=== PATIENT | male | born 1975 | race Caucasian/White ===

== ENCOUNTER 2025-04-26 19:54 | Emergency (ER) | payer MEDICAID, SELFPAY ==
[2025-04-26 19:58] VITALS: BP 157/91; PULSE 84; RESP 18; TEMP 36.6; O2SAT 95
--- NOTE | 2025-04-26 20:37 | ED.GENADUL_ITS ---
Discharge Plan Disposition Patient Disposition: Home Condition: Stable Discharge Details Clinical Impression: Epidermal cyst of neck Primary Care Provider: None,None ED Provider: Valentina Brandon Discharge Instructions Instructions: Epidermal Cyst (DC) Additional Instructions: You were seen in the emergency department today for evaluation of a cyst on the back of your neck, most likely an epidermal inclusion cyst. In our department a full physical examination performed, had an ultrasound that was reassuring against infection of the surrounding skin and tissues. The cyst was drained and packed with iodoform gauze, this should stay in place for the next 24 to 48 hours. This will help keep the cyst open and draining well it starts to heal from the inside out. It is normal for blood and fluid to come out of this and this is in fact preferable. You do not need to take antibiotics for this. I have placed a referral for you to establish with a primary care provider. It is definitely possible that this cyst could come back, if it does, you may need to be referred to general surgery to have it definitively removed. You can use warm compresses to help the area drain and improve swelling and pain. Please follow-up with your primary care provider in the next few days to discuss this visit and any symptoms that change, worsen, or persist. Thank you for allowing us to be part of your care. Stand Alone Forms: Portal Information, Work Release HPI General Mode of arrival: ambulatory . Date/Time Provider Initiated Documentation: 04/26/25 19:55 . Limitations to Documentation: no limitations . Information obtained by: patient, family and old records reviewed . HPI Narrative: This is a 50-year-old male patient without significant past medical history presenting for evaluation of a swelling on the back of his neck. The patient reports that for the last several months he has had a cyst in that region, has a history of cysts, states that this 1 has been more irritated and bothersome recently. He did attempt to pop it at home, but only a small amount of clear fluid and blood came out. The patient has not had a fever, has not noted any other changes to his health. He did not injure that area, does not use clippers over the area. Related Data Allergies Allergy/AdvReac Type Severity Reaction Status Date / Time naproxen Allergy Intermediate GI Bleeding Unverified 04/26/25 20:02 gabapentin AdvReac Severe Psychosis Unverified 04/26/25 20:02 General Stated Complaint: Cellulitis MIREYA: 3 Exam Narrative Exam Narrative: Gen: Awake and alert, in no apparent distress HEENT: Non-icteric sclera Neck: Supple, 1-1/2 cm cyst located to the left sided posterior aspect of the neck, firm, mobile, with no overlying warmth, redness, or induration. Lungs: No apparent respiratory distress, normal respiratory effort. CV: Appears well perfused, strong distal pulses, regular rate and rhythm Abdomen: Non-distended MSK: Moves 4 extremities without apparent limitation in ROM Skin: Visualized skin without rashes, cyanosis. Neuro: Normal Gait, no obvious focal deficits or facial asymmetry. Speaks in full, clear sentences. Psych: Appropriate for situation. Course Vital Signs Vital signs: Vital Signs Temperature 36.6 C 04/26/25 19:58 Pulse 84 04/26/25 19:58 Respiratory Rate 18 04/26/25 19:58 Blood Pressure 157/91 H 04/26/25 19:58 Pulse Oximetry 95 04/26/25 19:58 Temperature 36.6 C 04/26/25 19:58 Pulse 84 04/26/25 19:58 Respiratory Rate 18 04/26/25 19:58 Blood Pressure 157/91 H 04/26/25 19:58 Pulse Oximetry 95 04/26/25 19:58 Pain Level 7 04/26/25 19:58 Procedure Abscess Drainage Date of Procedure: 04/26/25 Time of Procedure: 20:20 Provider that performed the procedure: Valentina Henry Time Out Performed: No Patient Consented: Verbally Location of Exam: Neck/left side Indication: Mass. Local anesthetic: Lidocaine 2% and with epi, Amount of Local Anesthetic Used (mL): 1. Sterility: Non Sterile. Procedure Prep: Hand hygiene, Surgical Mask and 11 blade. Technique used, incised with blade. Amount of fluid expressed(mL): 2. Irrigation: irrigation used. Amount of irrigation used(mL): 250. Packing: Iodoform. Outcome: Sucessful Procedure Description/Note: After evaluating the location and superficial nature of the cyst/abscess, 2% lidocaine with epi was instilled along the skin to be incised, and within the abscess cavity. A stab incision was made over the area of maximal fluctuance, a small amount of purulent drainage was noted and sent for culture. The vast majority of the contents of the cyst were firm, white, consistent with epidermal inclusion cyst. Estimated blood loss less than 2 mL. After incision, the cyst/abscess cavity was deloculated using curved hemostats, and then was irrigated extensively with pressure irrigation and sterile normal saline. The cavity was packed with iodoform gauze, and dressed with a bulky 4 x 4 dressing. The patient tolerated this procedure well and without immediate adverse event. Ultrasound: Used/Image Saved Complications: None Medical Decision Making This is a 50-year-old male patient presenting for evaluation of a cyst on the back of his neck. My differential includes but is not limited to epidermal inclusion cyst, certainly considered abscess, exam less concerning for gwendolyn lulitis. Considered foreign body, folliculitis. Ultrasound was performed and demonstrates a discrete fluid collection with echogenic material within, that is quite superficial and does not involve the deep structures of the neck. Given this finding, I feel comfortable performing an incision and drainage, which was carried out as noted above. Contents most concerning for epidermal inclusion cyst, and in the absence of surrounding cellulitis I do not see an indication at this time to proceed with antibiosis. The wound was packed and I instructed the patient and his fianc?e on wound care, and provided him with a referral to establish with a primary care provider. At this time, the patient has had a full medical evaluation and is safe for discharge to home. They are hemodynamically stable, ambulatory, and tolerating PO. They are understanding of the follow-up plan and return precautions. They left our facility without incident. Valentina Brandon MD [facility] All Active Problems (Updated 04/26/25 @ 20:40 by Valentina Brandon MD) Epidermal cyst of neck (Acute) Social History Smoking/Tobacco Use Status: Current every day Smoking risk assessment performed?: Yes Alcohol Intake: current Alcohol Intake frequency: 0-2 drinks per day Drug use: Occasionally Substance use type: marijuana Do you feel safe in your relationship?: Yes POCUS Exam (ED) Limited Soft Tissue Exam DATE OF EXAM: 04/26/25 TIME OF EXAM: 20:13 PROVIDER THAT PERFORMED THE STUDY: Valentina Brandon LOCATION OF EXAM: Neck/left side REASON FOR EXAM: Abscess and Mass VISUALIZED STRUCTURES: Fascia, Muscle, Skin and Subcutaneous tissue PERTINENT FINDINGS/IMPRESSION: Abscess posterior left neck, 1cm with echogenic material noted in the fluid collection . Exam Complete DIFFERENTIAL DIAGNOSES: epidermal cyst vs abscess, no evidence of surrounding cellulitis
== END 2025-04-26 20:40 | disposition home or self-care (01) ==
PROVIDERS: Emergency Provider Emergency Medicine
DX: L72.0 Epidermal cyst (principal)
CPT/HCPCS: 99283; 99284; 10061; 76536; 76942; 87077; 87070; 87186; 87205; J2004